=== PATIENT | male | born 1995 | race African-American/Black ===

== ENCOUNTER 2019-04-05 10:25 | Emergency (ER) | payer BC ==
[2019-04-05] MEDS ORDERED: HYDROmorphone 1 MG/ML Syringe IM ONE (10:52)
[2019-04-05] MEDS ORDERED: Lidocaine 1% 10 ML MDV INJECT ONE (10:53)
[2019-04-05] MEDS ORDERED: Ondansetron 4 MG Tab.DIS PO ONE (10:53)
--- NOTE | 2019-04-05 10:58 | EDM.PDOC ---
ED HPI GENERAL MEDICAL PROBLEM - General Chief Complaint: Skin Complaint Stated Complaint: POSSIVLE INFECTION IN LEG Time Seen by Provider: 04/05/19 10:30 Source of Information: Reports: Patient History Limitations: Reports: No Limitations - History of Present Illness INITIAL COMMENTS - FREE TEXT/NARRATIVE: HISTORY AND PHYSICAL: History of present illness: Patient is a 24-year-old male presents to the ED today with concern of an infection on the bottom of his left buttock cheek 2 days. Patient states he started having a hard time sitting today so came to the ED. Patient states he's never had this occur before. Patient denies any other symptoms or concerns. Patient denies fever, chills, chest pain, shortness of breath, or cough. Denies headache, neck stiff ness, change in vision, syncope, or near syncope. Denies nausea, vomiting, abdominal pain, diarrhea, constipation, or dysuria. Has not noted any blood in urine or stool. Patient has been eating and drinking appropriately. Review of systems: As per history of present illness and below otherwise all systems reviewed and negative. Past medical history: As per history of present illness and as reviewed below otherwise noncontributory. Surgical history: As per history of present illness and as reviewed below otherwise noncontributory. Social history: See social history for further information Family history: As per history of present illness and as reviewed below otherwise noncontributory. Physical exam: General: Patient is alert, oriented, and in no acute distress. Patient laying comfortably on exam table. HEENT: Atraumatic, normocephalic, pupils equal and reactive bilaterally, negative for conjunctival pallor or scleral icterus, mucous membranes moist, TMs normal bilaterally, throat clear, neck supple, nontender, trachea midline. No drooling or trismus noted. No meningeal signs. No hot potato voice noted. Lungs: Clear to auscultation, breath sounds equal bilaterally, chest nontender. Heart: S1S2, regular rate and rhythm without overt murmur Abdomen: Soft, nondistended, nontender. Negative for masses or hepatosplenomegaly. Negative for costovertebral tenderness. Pelvis: Stable nontender. Genitourinary: Deferred. Rectal: Deferred. Skin: Intact, warm, dry. No lesions or rashes noted. Extremities: Atraumatic, negative for cords or calf pain. Neurovascular unremarkable. There is a 3cm abscess at the base of patients left buttocks that does not tract near the rectum or perineum. Neuro: Awake, alert, oriented. Cranial nerves II through XII unremarkable. Cerebellum unremarkable. Motor and sensory unremarkable throughout. Exam nonfocal. Notes: Dr. Franklin directly involved in patient care. Discussed the importance for follow-up with primary care provider and need to return to ED within 24-36 hours for evaluation of packing. Voices understanding and is agreeable to plan of care. Denies any further questions or concerns at this time. Diagnostics: None Therapeutics: Dilaudid IM, Zofran, I&D, Lidocaine Prescription: Bactrim Impression: Buttocks abscess Plan: 1. Take medication as prescribed. You can alternate ibuprofen and Tylenol as directed for pain and discomfort. 2. Return to the ED in 24-36 hours for reevaluation of packing. 3. Follow up with her primary care provider as discussed. Return to the ED as needed and as discussed. Definitive disposition and diagnosis as appropriate pending reevaluation and review of above. left upper posterior thigh Pain Score (Numeric/FACES): 10 - Related Data Allergies Allergy/AdvReac Type Severity Reaction Status Date / Time No Known Allergies Allergy Verified 03/02/19 19:45 MDT Home Meds: Home Meds Sulfamethoxazole/Trimethoprim [Bactrim Ds Tablet] 1 each PO BID 7 Days #14 tablet 04/05/19 [Rx] Past Medical History - Past Health History Medical/Surgical History: Denies Medical/Surgical History Social & Family History - Family History Family Medical History: Noncontributory - Tobacco Use Smoking Status *Q: Light Tobacco Smoker Years of Tobacco use: 1 Packs/Tins Daily: 0.1 - Caffeine Use Caffeine Use: Reports: None - Recreational Drug Use Recreational Drug Use: No ED ROS GENERAL - Review of Systems Review Of Systems: ROS reveals no pertinent complaints other than HPI. ED EXAM, SKIN/RASH Exam: See Below (See dictation) ED SKIN PROCEDURES - I&D Site: left buttocks Skin Prep: Providone-Iodine (Betadine) Local Anesthesia: Lidocaine: 1% Plain Local Anesthetic Volume: Other (15cc) Area Incised With: 11 Blade Drainage: Purulent, Moderate Amount Probed to Break Up Loculations: Yes Packed With: 1/4 in. Iodoform Sterile Dressinx4(s) Complications: No Course - Vital Signs Last Recorded V/S: Last Vital Signs Temp 36.8 C 04/05/19 10:42 Pulse 108 H 04/05/19 10:42 Resp 18 04/05/19 10:42 BP 150/103 H 04/05/19 10:42 Pulse Ox 95 04/05/19 10:42 - Orders/Labs/Meds Meds: Medications Discontinued Medications Generic Name Dose Route Start Last Admin Trade Name Cass PRN Reason Stop Dose Admin Hydromorphone HCl 1 mg 04/05/19 10:52 04/05/19 11:08 Dilaudid IM 04/05/19 10:53 1 mg ONETIME ONE Administration Lidocaine HCl 20 ml 04/05/19 10:53 04/05/19 11:10 Xylocaine 1% INJECT 04/05/19 10:54 Not Given ONETIME ONE Lidocaine HCl Confirm 04/05/19 11:04 04/05/19 11:11 Xylocaine-Mpf 1% Administered 04/05/19 11:05 Not Given Dose 20 ml .ROUTE .STK-MED ONE Lidocaine HCl 20 ml 04/05/19 11:10 04/05/19 11:11 Xylocaine-Mpf 1% INJECT 04/05/19 11:11 20 ml ONETIME ONE Administration Ondansetron HCl 4 mg 04/05/19 10:53 04/05/19 11:10 Zofran Odt PO 04/05/19 10:54 4 mg ONETIME ONE Administration Departure - Departure Time of Disposition: 11:38 Disposition: Home, Self-Care 01 Clinical Impression: Abscess of buttock, left - Discharge Information Prescriptions: Sulfamethoxazole/Trimethoprim [Bactrim Ds Tablet] 1 each PO BID 7 Days #14 tablet Forms: ED Department Discharge Additional Instructions: The following information is given to patients seen in the emergency department who are being discharged to home. This information is to outline your options for follow-up care. We provide all patients seen in our emergency department with a follow-up referral. The need for follow-up, as well as the timing and circumstances, are variable depending upon the specifics of your emergency department visit. If you don't have a primary care physician on staff, we will provide you with a referral. We always advise you to contact your personal physician following an emergency department visit to inform them of the circumstance of the visit and for follow-up with them and/or the need for any referrals to a consulting specialist. The emergency department will also refer you to a specialist when appropriate. This referral assures that you have the opportunity for follow-up care with a specialist. All of these measure are taken in an effort to provide you with optimal care, which includes your follow-up. Under all circumstances we always encourage you to contact your private physician who remains a resource for coordinating your care. When calling for follow-up care, please make the office aware that this follow-up is from your recent emergency room visit. If for any reason you are refused follow-up, please contact the [facility] Emergency Department at and asked to speak to the emergency department charge nurse. [facility] [address] [place] [id number] [address] 1. Take medication as prescribed. You can alternate ibuprofen and Tylenol as directed for pain and discomfort. 2. Return to the ED in 24-36 hours for reevaluation of packing. 3. Follow up with her primary care provider as discussed. Return to the ED as needed and as discussed.
== END 2019-04-05 12:14 | disposition home or self-care (01) ==
LOC: MW.ED 10:25
DX: L02.31 Cutaneous abscess of buttock (principal); F17.210 Nicotine dependence, cigarettes, uncomplicated
CPT/HCPCS: 10061; 96372; 99282; A9270; J1170; J2001